=== PATIENT | male | born 1965 | race Caucasian/White ===

== ENCOUNTER 2018-06-27 14:32 | Outpatient (CLI) | payer OTHER ==
[~2018-06-27 14:32] MED LIST: ENBREL50 MG/ML; NEXIUM40 M1; TEKTURNA150 MG; [UNRECOGNIZED DRUG - OTHER]
== END 2018-06-27 14:40 | disposition home or self-care (01) ==
LOC: LAB 14:32
DX: J11.1 Influenza due to unidentified influenza virus with other respiratory manifestations (principal); J20.0 Acute bronchitis due to Mycoplasma pneumoniae

== ENCOUNTER 2018-07-04 11:32 | Outpatient (CLI) | payer OTHER | END 2018-07-04 16:27 | disposition home or self-care (01) | LOC: LAB 11:32 | DX: J20.0 Acute bronchitis due to Mycoplasma pneumoniae (principal) ==

== ENCOUNTER 2019-02-05 15:02 | Outpatient (CLI) | payer OTHER | END 2019-02-05 15:04 | disposition home or self-care (01) | LOC: RAD 15:02 | DX: S86.019A Strain of unspecified Achilles tendon, initial encounter (principal) ==

== ENCOUNTER 2019-09-11 09:43 | Outpatient (CLI) | payer OTHER | END 2019-09-11 10:14 | disposition home or self-care (01) | LOC: LAB 09:43 | DX: E78.49 Other hyperlipidemia (principal); E11.00 Type 2 diabetes mellitus with hyperosmolarity without nonketotic hyperglycemic-hyperosmolar coma (NKHHC); M25.50 Pain in unspecified joint; M10.072 Idiopathic gout, left ankle and foot; M25.572 Pain in left ankle and joints of left foot ==

== ENCOUNTER → 2019-09-24 10:07 | Outpatient (CLI) | payer OTHER | END | disposition home or self-care (01) | LOC: LAB 10:07 | PROVIDERS: ATTEND Internal Medicine | DX: L40.50 Arthropathic psoriasis, unspecified (principal); M10.9 Gout, unspecified; E11.9 Type 2 diabetes mellitus without complications; M35.8 Other specified systemic involvement of connective tissue; M79.10 Myalgia, unspecified site ==

== ENCOUNTER 2019-10-29 08:58 | Outpatient (CLI) | payer OTHER | END 2019-10-29 09:11 | disposition home or self-care (01) | LOC: LAB 08:58 | PROVIDERS: ATTEND Internal Medicine | DX: M79.18 Myalgia, other site (principal); M35.8 Other specified systemic involvement of connective tissue ==

== ENCOUNTER → 2020-06-26 15:00 | Outpatient (CLI) | payer OTHER | END | disposition home or self-care (01) | LOC: PPH VACUNA 15:00 | DX: Z23 Encounter for immunization (principal) ==

== ENCOUNTER → 2020-07-17 14:55 | Outpatient (CLI) | payer OTHER | END | disposition home or self-care (01) | LOC: PPH VACUNA 14:55 | DX: Z23 Encounter for immunization (principal) ==

== ENCOUNTER 2022-01-07 13:16 | Outpatient (CLI) | payer OTHER | END 2022-01-07 13:26 | disposition home or self-care (01) | LOC: RAD 13:16 | PROVIDERS: ATTEND Internal Medicine Gastroenterology | DX: R13.14 Dysphagia, pharyngoesophageal phase (principal) ==